=== PATIENT | male | born 1945 | race Caucasian/White ===

== ENCOUNTER 2023-06-01 07:03 | Day surgery (SDC) | payer OTHER ==
[~2023-06-01] VITALS: Ht 188 cm; Wt 103.0 kg
[~2023-06-01 07:03] MED LIST: CLINDAMYCIN PHOS 900 MG/ D5W 50 ML PREMIX IV ONE
[2023-06-01] MEDS ORDERED: CLINDAMYCIN PHOSPHATE IV ONE (07:04)
[2023-06-01] MEDS ORDERED: D5W IV ONE (07:04)
[2023-06-01] MEDS ORDERED: DEXAMETHASONE SOD PHOSPHATE 4 MG/ML VIAL ONE (10:17)
[2023-06-01] MEDS ORDERED: PROPOFOL 200MG/ 20ML VIAL (DIPRIVAN) IV ONE (10:17)
[2023-06-01] MEDS ORDERED: fentaNYL CITRATE/PF 100 MCG/2 ML AMP ONE (10:17)
[2023-06-01] MEDS ORDERED: NS 1000 ML IV.SOLN IV ONE (10:17)
[2023-06-01] MEDS ORDERED: BUPIVACAINE /PF 0.25% 30 ML VIAL INJ ONE (10:17)
[2023-06-01] MEDS ORDERED: SEVOFLURANE 15 MIN GAS INH ONE (10:17)
[2023-06-01] MEDS ORDERED: GLYCOPYRROLATE 0.2 MG/ML VIAL ONE (10:17)
[2023-06-01] MEDS ORDERED: MIDAZOLAM HCL/PF 2 MG/2 ML SYRINGE ONE (10:17)
[2023-06-01] MEDS ORDERED: HYDROmorphone 1 MG/ML INJ. CARTRIDGE IVP PRN ×2 (11:00)
[2023-06-01] MEDS ORDERED: MEPERIDINE HCL/PF 25 MG/ML DISP.SYRIN IVP PRN (11:00)
[2023-06-01] MEDS ORDERED: hydrALAZINE HCL 20 MG/ML VIAL IVP PRN (11:00)
[2023-06-01] MEDS ORDERED: METOCLOPRAMIDE HCL 10 MG/2 ML VIAL IVP PRN (11:00)
[2023-06-01] MEDS ORDERED: LR 1,000 ML IV SCH (11:00)
[2023-06-01 11:12] VITALS: O2SAT 98
[2023-06-01] MEDS ORDERED: ACETAMINOPHEN I.V. 1000 MG 100 ML IV ONE (11:28)
[2023-06-01] MEDS ORDERED: D5/0.45 NS 1,000 ML IV SCH (12:00)
[2023-06-01] MEDS ORDERED: HYDROcodone/ACETAMIN 5-325 MG TAB (NORCO/ VICODIN) PO PRN ×2 (12:00)
[2023-06-01 16:25] VITALS: BP_SYST 132; PULSE 49; RESP 17
== END 2023-06-01 14:41 | disposition home or self-care (01) ==
LOC: SDS 07:03 → SMU 07:05 → EDSTATUS 08:55 → SDS 14:41
PROVIDERS: ATTEND Colon & Rectal Surgery
DX: K40.30 Unilateral inguinal hernia, with obstruction, without gangrene, not specified as recurrent (principal); I10 Essential (primary) hypertension; I25.10 Atherosclerotic heart disease of native coronary artery without angina pectoris; K21.9 Gastro-esophageal reflux disease without esophagitis; Z88.0 Allergy status to penicillin; E11.9 Type 2 diabetes mellitus without complications; E78.5 Hyperlipidemia, unspecified; E03.9 Hypothyroidism, unspecified; Z79.899 Other long term (current) drug therapy
CPT/HCPCS: 87081; 49525; C1781; J3490 ×4; J1100; J3465; J2704; J3010; J7030; J0131